=== PATIENT | female | born 1975 | race Caucasian/White ===

== ENCOUNTER 2024-03-17 11:15 | Outpatient (RCR) | payer OTHER ==
[~2024-03-17 11:15] MED LIST: CIPRO 500MG TA500 MG PO; CRUTCHES MC; FLAGYL500 MG PO; FLEXERIL 1010 MG/TAB PO; NAPROSYN500 MG PO; PREDNISONE20 MG PO; ROXICODONE 55 MG/TAB PO; TRAVEL SICKNESS25 MG PO; ZOFRAN ODT4 MG PO
== END 2024-03-22 | disposition home or self-care (01) ==
LOC: WSPT
DX: G62.9 Polyneuropathy, unspecified (principal)